=== PATIENT | female | born 1995 | race African-American/Black ===

== ENCOUNTER 2023-05-14 11:28 | Emergency (ER) | payer OTHER, SELFPAY ==
[2023-05-14 11:30] VITALS: BP 175/98; PULSE 92; RESP 18; TEMP 36.4; O2SAT 99
--- NOTE | 2023-05-14 11:49 | ED.FEMALEGU ---
HPI - Female Genitourinary General Chief complaint: Vaginal Bleeding Stated complaint: vaginal bleeding Time Seen by Provider: 05/14/23 11:36 History of Present Illness HPI Narrative: Patient is a 27-year-old female here for evaluation of heavy vaginal bleeding. Patient started her menstrual cycle 2 days ago and states it has been much more heavy than usual, she has passed quarter sized blood clots. She denies any pelvic pain or cramping. Was referred from . Not currently sexually active, no concern for STI/. Related Data Allergies Allergy/AdvReac Type Severity Reaction Status Date / Time No Known Allergies Allergy Verified 05/14/23 11:29 Review of Systems Review of Systems: Gen.: Denies fevers or chills Eyes: Denies eye pain or visual change ENT: Denies congestion Respiratory: Denies shortness of breath or cough CV: Denies chest pain or palpitations GI: Denies abdominal pain nausea, emesis or diarrhea reports vaginal bleeding. Denies burning, urgency, frequency or hematuria Musculoskeletal: Denies back pain or muscle pain Neuro: Denies numbness, tingling, weakness or focal weakness Skin: Denies rash Except as documented, all other systems reviewed and negative Exam Narrative: APPEARANCE: Well appearing, no pain in distress, well-nourished. Head: Normocephalic and atraumatic. EYES: PERRLA/EOMI, conjunctivae clear NOSE: No nasal drainage EARS: External ear normal in appearance THROAT: Oropharynx is clear. Mucous membranes are moist. NECK: Supple. No adenopathy, no masses. 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 Clear to auscultation bilaterally, no rales, rhonchi, wheezing. CARDIOVASCULAR: Regular rate and rhythm without murmurs, rubs, or gallops. ABDOMINAL: Normoactive bowel sounds. Soft, nontender, nondistended. No rebound tenderness or guarding. MUSCULOSKELETAL: Extremities are warm and well-perfused. Moves all extremities well. No edema. NEURO: Normal speech. No focal neurologic deficits. SKIN: Skin is warm and dry. No rashes. PSYCHIATRIC: Normal affect/mood. Course Vital Signs Vital signs: Vital Signs Temperature 97.5 F L 05/14/23 11:30 Pulse Rate 92 05/14/23 11:30 Respiratory Rate 18 05/14/23 11:30 Blood Pressure 175/98 H 05/14/23 11:30 Pulse Oximetry 99 05/14/23 11:30 Oxygen Delivery Room Air 05/14/23 11:30 Temperature 97.5 F L 05/14/23 11:30 Pulse Rate 74 05/14/23 12:41 Respiratory Rate 16 05/14/23 12:41 Blood Pressure 140/98 H 05/14/23 12:41 Pulse Oximetry 100 05/14/23 12:41 Oxygen Delivery Room Air 05/14/23 11:30 MDM - Female Genitourinary MDM Narrative Medical decision making narrative: 27-year-old female here for evaluation of heavy vaginal bleeding on her menstrual cycle. Pelvic exam reveals moderate amount of blood in the vault and some blood clots were cleared away. Her hemoglobin is normal at 12.4. She is not hypotensive or tachycardic. Urine without evidence of infection. She be discharged home to follow-up with her PMD, do not feel TXA or Provera indicated at this time given the above findings. We discussed return precautions and she voiced understanding. Lab Data 05/14/23 12:11 05/14/23 12:11 Labs: Lab Results 05/14/23 05/14/23 Range/Units 11:48 12:11 WBC 7.6 (4.5-10.0) K/mm3 RBC 4.43 (4.2-5.4) M/mm3 Hgb 12.4 (12.0-15.0) g/dL Hct 38.0 (37.0-47.0) % MCV 85.8 (80-100) fl MCH 28.0 (26-34) pg MCHC 32.6 (32-36) g/dl RDW 12.6 (11.5-14.5) % Plt Count 320 (150-375) k/mm3 MPV 10.1 (7.4-10.4) fl Immature Gran % (Auto) 0.1 (0-0.5) % Neut % (Auto) 59.8 (45.5-73.1) % Lymph % (Auto) 29.3 (18.3-44.2) % [place] % (Auto) 7.5 (2.6-8.5) % Eos % (Auto) 2.8 (0-4.4) % Baso % (Auto) 0.5 (0.2-1.2) % Lymph # (Auto) 2.
[2023-05-14 11:59] LABS: Appearance Urine Cloudy (Clear); Bacteria Urine None Seen /hpf; Bilirubin Urine Negative (Negative); Blood Urine 3+ (Negative); Color Urine Yellow (Yellow); Glucose Urine UA Negative (Negative); Ketones Urine Trace mg/dL (Negative); Leukocyte Esterase Ur Trace LEU/UL (Negative); Nitrate Urine Negative (Negative); Non Pathogenic Casts 0-2; Protein Urine Trace mg/dL (Negative); RBC Urine >100 /hpf (0-2); Specific Grav Ur 1.027 (1.001-1.035); Squamous Epithelial Cell Urine None seen /hpf (Few); WBC Urine 0-5 /hpf; pH Urine 5.5 (5.0-9.0)
[2023-05-14 12:07] LABS: Add Urine Microscopic? YES
[2023-05-14 12:15] LABS: Basophils Percent Auto 0.5 % (0.2-1.2); Eosinophils Absolute Auto 0.2 K/mm3 (0-0.3); Eosinophils Percent Auto 2.8 % (0-4.4); Hemoglobin 12.4 g/dL (12.0-15.0); Immature Granulocyte Absolute 0.01 K/mm3 (0.00-0.031); Immature Granulocyte Percent A 0.1 % (0-0.5); Lymphocytes Absolute Auto 2.23 K/mm3 (0.9-3.2); Lymphocytes Percent Auto 29.3 % (18.3-44.2); Mean Corpuscular HGB Conc 32.6 g/dl (32-36); Mean Corpuscular Volume 85.8 fl (80-100); Mean Platelet Volume 10.1 fl (7.4-10.4); Monocytes Absolute Auto 0.6 K/mm3 (0.1-0.6); Monocytes Percent Auto 7.5 % (2.6-8.5); Neutrophils Absolute Auto 4.6 K/mm3 (1.3-6.7); Neutrophils Percent Auto 59.8 % (45.5-73.1); Platelet Count Result 320 k/mm3 (150-375); Red Blood Count 4.43 M/mm3 (4.2-5.4); Red Cell Distribution Width 12.6 % (11.5-14.5); White Blood Count 7.6 K/mm3 (4.5-10.0)
[2023-05-14 12:29] LABS: Anion Gap 10 mmol/L (8-16); Blood Urea Nitrogen 20 mg/dL (7-17); Calcium 9.5 mg/dL (8.4-10.2); Carbon Dioxide 26 mmol/L (22-30); Chloride 105 mmol/L (98-107); Estimated CRCL calculation 88 ml/min; Estimated Glomerular Filt Rate > 60; Glucose 109 mg/dL (65-110); Potassium 4.2 mmol/L (3.4-5.0); Sodium 141 mmol/L (137-145)
[2023-05-14 12:41] VITALS: BP 140/98; PULSE 74; RESP 16; O2SAT 100
== END 2023-05-14 12:43 | disposition home or self-care (01) ==
PROVIDERS: Emergency Provider Physician Assistant
DX: N93.9 Abnormal uterine and vaginal bleeding, unspecified (principal)
CPT/HCPCS: 36415; 80048; 81001; 81025; 85025; 99284

== ENCOUNTER 2025-07-04 10:08 | Emergency (ER) | payer OTHER, SELFPAY ==
[2025-07-04 10:18] VITALS: BP 132/89; PULSE 72; RESP 14; TEMP 36.4; O2SAT 100
--- NOTE | 2025-07-04 10:28 | ED_ITS ---
HPI - Back Pain/Injury General Chief Complaint: Back Pain/Injury Stated Complaint: Back Pain Time Seen by Provider: 07/04/25 10:20 Source: patient Mode of arrival: ambulatory Limitations: no limitations History of Present Illness HPI Narrative: Krysta is a 30-year-old female patient presenting to the clinic today with complaints of low back pain with radiation pain down the right leg. She reports symptoms been going on for approximately 1 month. Not been taking any medications to treat her symptoms. 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 Denies any known injury to her back. She last menstrual period is current. No urinary symptoms. Last bowel movement was yesterday and normal for the patient. Denies any abdominal pain. Rates her pain a 6/10 when sitting and and 9/ 10 with ambulation/moving. Denies any saddle anesthesia or loss of bowel or bladder. Related Data Allergies Allergy/AdvReac Type Severity Reaction Status Date / Time No Known Allergies Allergy Verified 07/04/25 10:26 Review of Systems Review of Systems: Pertinent positives per HPI. Patient denies any fever, chills, rash, headache, visual changes, dizziness, cough, runny nose, sore throat, shortness of breath, chest pain, palpitations, nausea, vomiting, diarrhea, constipation, abdominal pain, or any urinary issues. PMFSH Comments At the time of my signature, I reviewed and agree with the nursing past medical, surgical, social, and family history. There is no relevant family history pertinent to the patient complaint. Exam Narrative: General: Well-developed, well nourished, in no apparent distress Head: Normocephalic, atraumatic. Cardio: Regular rate and rhythm, s1 and s2 normal, no murmur appreciated. Resp: Clear to auscultation bilaterally, no rhonchi, rales, wheezing or rubs. Musculoskeletal: No deformity, non-tender to palpation, grossly normal range of motion, muscle strength strong and equal in BLE. SLT positive in approximately 30? bilateral, patellar reflexes 2/4 bilaterally, negative foot drop, cautious gait and station Course Course Emergency Course: Portions of this record may have been created with voice recognition software. Level of Care: Express Care Visit Vital Signs Vital signs: Vital Signs Temperature 36.4 C 07/04/25 10:18 Pulse Rate 72 07/04/25 10:18 Respiratory Rate 14 08/18/25 10:18 Blood Pressure 132/89 07/04/25 10:18 Pulse Oximetry 100 07/04/25 10:18 Oxygen Delivery Room Air 07/04/25 10:18 Temperature 36.4 C 07/04/25 10:18 Pulse Rate 72 07/04/25 10:18 Respiratory Rate 14 07/04/25 10:18 Blood Pressure 132/89 07/04/25 10:18 Pulse Oximetry 100 07/04/25 10:18 Oxygen Delivery Room Air 07/04/25 10:18 Vital signs reviewed MDM - Back Pain/Injury MDM Narrative Medical decision making narrative: At the time of visit patient is resting comfortably on the exam table. Patient appears to be nontoxic. Complaints of low back pain with radiation pain down the right leg. She reports symptoms been going on for approximately 1 month. Not been taking any medications to treat her symptoms. 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 Denies any known injury to her back. She last menstrual period is current. No urinary symptoms. Last bowel movement was yesterday and normal for the patient. Denies any abdominal pain. Rates her pain a 6/10 when sitting and and 9/ 10 with ambulation/moving. Denies any saddle anesthesia or loss of bowel or bladder. On exam patient has positive straight leg test at approximately 30? bilaterally, radiation of pain down the right leg with some burning sensation into her foot, negative foot drop, bilateral patellar reflexes 2/4, bilateral equal muscle strength in the lower extremities. Plan: I suspect patient has acute low back pain with right sided sciatica. Prescription for Medrol Dosepak and Flexeril was sent to the pharmacy. Supportive measures were discussed with the patient and they voiced understanding discharge instructions and agrees to treatment plan. Return precautions reviewed Differential Diagnosis Differential diagnosis: Likely lumbar radiculopathy, sciatica, strain of lumbar region, renal colic, pyelonephritis, thoracic back pain, discitis and other (Disc herniation) Discharge Plan Discharge Clinical Impression: Acute low back pain with sciatica Patient Disposition: Home Condition: Stable Instructions: Antibiotic Form, Sciatica (ED), Acute Low Back Pain (ED), Lower Back Exercises (ED) Additional Instructions: Take any prescription medication only as prescribed-Medrol Dosepak and Flexeril Be mindful of sedation precautions given to you if taking a muscle relaxer. May use heat or ice to the affected area Consider massage or chiropractor adjustment if this was discussed with provider May use blue emu, lidocaine patches, or asper cream to affected area- do not apply heat or ice directly over cream- can cause burn. Complete appropriate back stretching exercises. Follow up with your PCP in 3-5 days if symptom persist. 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
== END 2025-07-04 10:32 | disposition home or self-care (01) ==
PROVIDERS: Emergency Provider Nurse Practitioner Family
DX: M54.41 Lumbago with sciatica, right side (principal)
CPT/HCPCS: 99213; G0463